=== PATIENT | male | born 1985 | race Hispanic/Latino ===

== ENCOUNTER 2019-09-19 10:49 | Emergency (ER) | payer OTHER ==
[2019-09-19] MEDS ORDERED: HYDRALAZINE HCL 20 MG/ML VIAL ONE (11:41)
[2019-09-19 11:44] LABS: BASOPHILS % (AUTO) 0.3 % (0.0-5.0); EOSINOPHILS % (AUTO) 1.6 % (0.0-8.0); HEMATOCRIT 51.1 % (42-54); LYMPHOCYTES % (AUTO) 41.9 % (21.0-51.0); MEAN CORPUSCULAR HEMOGLOBIN 29.5 pg (27.0-33.0); MEAN CORPUSCULAR HGB CONC 34.2 g/dL (32.0-36.0); MEAN CORPUSCULAR VOLUME 86.2 fL (79-99); MONOCYTES % (AUTO) 11.4 % (3.0-13.0); NEUTROPHILS % (AUTO) 44.6 % (40.0-77.0); PLATELET COUNT (AUTO) 169 K/uL (130-400); RED BLOOD CELL COUNT(AUTO) 5.93 MIL/uL (4.50-6.20); RED CELL DISTRIBUTION WIDTH 11.9 % (11.0-15.5); WHITE BLOOD COUNT (AUTO) 6.3 K/uL (4.8-10.8)
[2019-09-19 11:54] LABS: CREATININE 0.8 mg/dL (0.5-1.5); POTASSIUM 3.9 mmol/L (3.5-5.1)
== END 2019-09-19 14:26 | disposition home or self-care (01) ==
LOC: EDH 10:49
DX: I10 Essential (primary) hypertension (principal); Z79.899 Other long term (current) drug therapy
CPT/HCPCS: 36415; 80048; 85025; 93005; 96365; 96366; 99285; J0360

== ENCOUNTER 2024-02-16 11:14 | Emergency (ER) | payer OTHER ==
[~2024-02-16] VITALS: Ht 177.8 cm; Wt 138.3 kg
[2024-02-16] MEDS: ENALAPRILAT DIHYDRATE 1.25MG/ML 1ML VIAL IV STA (12:44)
[2024-02-16 13:37] VITALS: BP 156/93; PULSE 77; RESP 16; O2SAT 99
== END 2024-02-16 13:52 | disposition home or self-care (01) ==
LOC: EDH 11:14
DX: I10 Essential (primary) hypertension (principal); R51.9 Headache, unspecified
CPT/HCPCS: 99285; 96374; 70450; J3490